=== PATIENT | female | born 1945 | race African-American/Black ===

== ENCOUNTER 2020-11-10 21:07 | Emergency (ER) | payer MEDICARE, MEDICAID ==
[~2020-11-10] VITALS: Ht 172.7 cm; Wt 82.0 kg
[2020-11-11 06:10] VITALS: BP 154/62
== END 2020-11-11 06:00 | disposition home or self-care (01) ==
LOC: ER 21:07
DX: S00.83XA Contusion of other part of head, initial encounter (principal); W01.198A Fall on same level from slipping, tripping and stumbling with subsequent striking against other object, initial encounter; Y93.89 Activity, other specified; Y92.013 Bedroom of single-family (private) house as the place of occurrence of the external cause; I10 Essential (primary) hypertension; G30.9 Alzheimer's disease, unspecified; F02.80 Dementia in other diseases classified elsewhere, unspecified severity, without behavioral disturbance, psychotic disturbance, mood disturbance, and anxiety
CPT/HCPCS: 93005; 99285

== ENCOUNTER 2021-05-20 17:05 | Inpatient (IN) | payer MEDICARE, MEDICAID ==
[~2021-05-20] VITALS: Ht 162.6 cm; Wt 51.7 kg
[2021-05-20] MEDS ORDERED: PIPERACILLIN/TAZ 3.375G PREMIX 50 ML IV ONE (21:45)
[2021-05-20] MEDS ORDERED: VANCOMYCIN 1 G PREMIX 200 ML IV ONE (21:45)
[2021-05-20 23:48] LABS: BASOPHILS % 0.6 % (0.0-2.0); EOSINOPHILS % 1.2 % (0.0-5.0); HEMATOCRIT. 29.1 % (36.0-48.0); HEMOGLOBIN. 9.5 g/dL (12.0-16.0); LYMPHOCYTES % 27.4 % (20.0-50.0); MEAN CORPUSCULAR HEMOGLOBIN 26.3 pg (28.0-32.0); MEAN CORPUSCULAR VOLUME 80.3 fL (81.0-99.0); MEAN PLATELET VOLUME 11.6 fl (7.4-10.4); NEUTROPHILS % 62.8 % (40.0-76.0); PLATELET 119 x1000/uL (130-400); RED BLOOD CELL COUNT 3.63 mill/uL (4.2-5.4); RED CELL DISTRIBUTION WIDTH 14.4 % (11.6-14.6)
[2021-05-20 23:54] LABS: CHLORIDE 111 mEq/L (98-107)
[2021-05-20 23:55] LABS: INR 1.1; PROTHROMBIN TIME 11.5 sec (9.6-11.0)
[2021-05-21] MEDS ORDERED: CLONIDINE 0.2MG TABLET PO NR
[2021-05-21] MEDS: HYDRALAZINE 20MG/ML VIAL IV PRN (01:08)
[2021-05-21 01:15] LABS: CLARITY URINE CLEAR (CLEAR); COLOR URINE DARK YELLOW (YELLOW); KETONES URINE NEGATIVE (NEGATIVE); LEUKOCYTE ESTERASE URINE TRACE (NEGATIVE); NITRITE URINE NEGATIVE (NEGATIVE); OCCULT BLOOD URINE NEGATIVE (NEGATIVE); PROTEIN URINE TRACE (NEGATIVE); SPECIFIC GRAVITY URINE 1.015 (1.005-1.030)
[2021-05-21] MEDS ORDERED: IOHEXOL-300 100 ML BOTTLE ONE (02:11)
[2021-05-21 03:00] VITALS: BP 178/62
[2021-05-21] MEDS ORDERED: PIPERACILLIN/TAZOBACTAM 3.375GM/50ML PREMIX IV ONE (06:00)
[2021-05-21] MEDS ORDERED: MEMA10TA2 MT (07:00)
[2021-05-21] MEDS ORDERED: METO-385 PO (07:29)
[2021-05-21] MEDS ORDERED: LORA-249 MT (07:29)
[2021-05-21] MEDS ORDERED: MEMA10TA55 MT (07:29)
[2021-05-21] MEDS ORDERED: HYDR-4135 PO (07:29)
[2021-05-21 08:00] VITALS: BP 174/63
[2021-05-21] MEDS: PIPERACILLIN/TAZOBACTAM 2.25G in DEXTROSE 5% WATER 50ML IV SCH ×3 (08:33→17:43)
[2021-05-21] MEDS: DONEPEZIL HCL 10MG TABLET PO SCH (08:34)
[2021-05-21] MEDS: LISINOPRIL 20MG TABLET PO SCH (08:35)
[2021-05-21] MEDS: AMLODIPINE 10MG TABLET PO SCH (08:35)
[2021-05-21] MEDS: ENOXAPARIN 30MG/0.3ML SYR SUBCUT SCH (08:37)
[2021-05-21] MEDS ORDERED: HYDRALAZINE HCL 50MG TABLET PO NR (11:15)
[2021-05-21] MEDS: SODIUM CHLORIDE 0.45% 1,000 ML IV SCH (11:32)
[2021-05-21] MEDS ORDERED: ACETAMINOPHEN 650MG/20.3ML UDC PO PRN (15:00)
[2021-05-21 16:00] VITALS: BP 121/52
[2021-05-21 20:00] VITALS: BP 119/51
[2021-05-21] MEDS ORDERED: VANCOMYCIN 750 MG PREMIX 150 ML IV SCH (20:00)
[2021-05-21 21:36] VITALS: BP 119/51
[2021-05-21] MEDS: HYDRALAZINE HCL 50MG TABLET PO SCH (22:03)
[2021-05-22] VITALS (8 sets, daily range): BP systolic 154–175; BP diastolic 58–65
[2021-05-22] MEDS: PIPERACILLIN/TAZOBACTAM 2.25G in DEXTROSE 5% WATER 50ML IV SCH ×4 (00:50→17:20)
[2021-05-22] MEDS: SODIUM CHLORIDE 0.45% 1,000 ML IV SCH ×2 (00:50→11:35)
[2021-05-22 07:46] LABS: BASOPHILS % 0.6 % (0.0-2.0); EOSINOPHILS % 3.5 % (0.0-5.0); HEMATOCRIT. 25.6 % (36.0-48.0); HEMOGLOBIN. 8.7 g/dL (12.0-16.0); LYMPHOCYTES % 20.2 % (20.0-50.0); MEAN CORPUSCULAR HEMOGLOBIN 26.9 pg (28.0-32.0); MEAN CORPUSCULAR VOLUME 78.7 fL (81.0-99.0); MEAN PLATELET VOLUME 12.3 fl (7.4-10.4); MONOCYTES % 9.6 % (2.0-8.0); NEUTROPHILS % 66.1 % (40.0-76.0); PLATELET 101 x1000/uL (130-400); RED BLOOD CELL COUNT 3.25 mill/uL (4.2-5.4); RED CELL DISTRIBUTION WIDTH 14.2 % (11.6-14.6)
[2021-05-22] MEDS: LISINOPRIL 20MG TABLET PO SCH (08:45)
[2021-05-22] MEDS: DONEPEZIL HCL 10MG TABLET PO SCH (08:45)
[2021-05-22] MEDS: AMLODIPINE 10MG TABLET PO SCH (08:45)
[2021-05-22] MEDS: ENOXAPARIN 30MG/0.3ML SYR SUBCUT SCH (08:46)
[2021-05-22] MEDS: HYDRALAZINE HCL 50MG TABLET PO SCH ×2 (08:47→21:33)
[2021-05-22] MEDS: HYDRALAZINE 20MG/ML VIAL IV PRN (13:03)
[2021-05-22] MEDS: VANCOMYCIN 750 MG PREMIX 150 ML IV SCH (21:20)
[2021-05-23] VITALS: BP_SYST 158; BP_SYST 166; BP_DIAS 59; BP_DIAS 65
[2021-05-23] MEDS: PIPERACILLIN/TAZOBACTAM 2.25G in DEXTROSE 5% WATER 50ML IV SCH ×5 (01:28→23:12)
[2021-05-23] MEDS: SODIUM CHLORIDE 0.45% 1,000 ML IV SCH ×2 (03:15→16:00)
[2021-05-23] MEDS: HYDRALAZINE 20MG/ML VIAL IV PRN (03:39)
[2021-05-23 04:00] VITALS: BP 152/52
[2021-05-23 06:21] LABS: BASOPHILS % 0.6 % (0.0-2.0); EOSINOPHILS % 0.7 % (0.0-5.0); HEMATOCRIT. 26.3 % (36.0-48.0); HEMOGLOBIN. 8.7 g/dL (12.0-16.0); LYMPHOCYTES % 18.2 % (20.0-50.0); MEAN CORPUSCULAR HEMOGLOBIN 25.9 pg (28.0-32.0); MEAN CORPUSCULAR VOLUME 78.6 fL (81.0-99.0); MONOCYTES % 11.5 % (2.0-8.0); PLATELET 124 x1000/uL (130-400); RED BLOOD CELL COUNT 3.35 mill/uL (4.2-5.4); RED CELL DISTRIBUTION WIDTH 14.3 % (11.6-14.6)
[2021-05-23 08:00] VITALS: BP 175/66
[2021-05-23] MEDS: ENOXAPARIN 30MG/0.3ML SYR SUBCUT SCH ×2 (09:00→10:45)
[2021-05-23] MEDS: AMLODIPINE 10MG TABLET PO SCH (09:51)
[2021-05-23] MEDS: LISINOPRIL 20MG TABLET PO SCH (09:51)
[2021-05-23] MEDS: HYDRALAZINE HCL 50MG TABLET PO SCH (09:51)
[2021-05-23] MEDS: DONEPEZIL HCL 10MG TABLET PO SCH (09:51)
[2021-05-23] MEDS ORDERED: POTASSIUM CHLORIDE 20MEQ TABLET SR PO NR (11:00)
[2021-05-23 12:00] VITALS: BP 152/58
[2021-05-23 16:00] VITALS: BP 160/62
[2021-05-23 20:00] VITALS: BP 164/65
[2021-05-23] MEDS: HYDRALAZINE HCL 100MG TABLET PO SCH (21:27)
[2021-05-23] MEDS: HYDROCODONE/ACETAMINOPHEN 5/325MG TABLET PO PRN (21:28)
[2021-05-23] MEDS: VANCOMYCIN 750 MG PREMIX 150 ML IV SCH (21:29)
[2021-05-24] VITALS: BP 160/60
[2021-05-24] MEDS: HYDRALAZINE 20MG/ML VIAL IV PRN (00:52)
[2021-05-24 04:00] VITALS: BP 157/60
[2021-05-24] MEDS: PIPERACILLIN/TAZOBACTAM 2.25G in DEXTROSE 5% WATER 50ML IV SCH ×4 (05:07→23:40)
[2021-05-24] MEDS: SODIUM CHLORIDE 0.45% 1,000 ML IV SCH ×2 (05:07→17:48)
[2021-05-24 08:00] VITALS: BP 163/72
[2021-05-24] MEDS: ENOXAPARIN 40MG/0.4ML SYR SUBCUT SCH (08:35)
[2021-05-24] MEDS: DONEPEZIL HCL 10MG TABLET PO SCH (08:35)
[2021-05-24] MEDS: AMLODIPINE 10MG TABLET PO SCH (08:36)
[2021-05-24] MEDS: LISINOPRIL 20MG TABLET PO SCH (08:36)
[2021-05-24] MEDS: HYDRALAZINE HCL 100MG TABLET PO SCH ×2 (08:36→17:33)
[2021-05-24 12:00] VITALS: BP 135/54
[2021-05-24] MEDS ORDERED: IOHEXOL-350 100 ML BOTTLE ONE (14:42)
[2021-05-24 16:10] VITALS: BP 161/72
[2021-05-24] MEDS ORDERED: CLONIDINE 0.1MG TABLET PO PRN (16:45)
[2021-05-24] MEDS ORDERED: DOCU-138 MT (17:11)
[2021-05-24] MEDS ORDERED: FERR325T23 MT (17:11)
[2021-05-24] MEDS ORDERED: AMOX1TAB16 MT (17:31)
[2021-05-24] MEDS ORDERED: DOXY100C2 MT (17:31)
[2021-05-24] MEDS: HYDROCODONE/ACETAMINOPHEN 5/325MG TABLET PO PRN (18:52)
[2021-05-24 20:00] VITALS: BP 157/61
[2021-05-24 20:21] LABS: TOTAL IRON BINDING CAPACITY 269 ug/dL (250-450)
[2021-05-24] MEDS: VANCOMYCIN 750 MG PREMIX 150 ML IV SCH (20:22)
[2021-05-25] VITALS: BP 165/57
[2021-05-25] MEDS: HYDRALAZINE HCL 100MG TABLET PO SCH ×2 (02:31→09:08)
[2021-05-25 04:00] VITALS: BP 186/64
[2021-05-25] MEDS: PIPERACILLIN/TAZOBACTAM 2.25G in DEXTROSE 5% WATER 50ML IV SCH ×2 (06:11→11:53)
[2021-05-25 08:00] VITALS: BP 106/64
[2021-05-25 08:47] VITALS: BP 106/68
[2021-05-25] MEDS: LISINOPRIL 20MG TABLET PO SCH (09:00)
[2021-05-25] MEDS: AMLODIPINE 10MG TABLET PO SCH (09:00)
[2021-05-25] MEDS: ENOXAPARIN 40MG/0.4ML SYR SUBCUT SCH (09:07)
[2021-05-25] MEDS: DONEPEZIL HCL 10MG TABLET PO SCH (09:07)
[2021-05-25] MEDS: SODIUM CHLORIDE 0.45% 1,000 ML IV SCH (09:08)
[2021-05-25 12:00] VITALS: BP 165/62
[2021-05-26] MEDS ORDERED: ENOXAPARIN 30MG/0.3ML SYR SUBCUT SCH (09:00)
== END 2021-05-25 13:55 | disposition home or self-care (01) | DRG 602 ==
LOC: ER 17:05 → 5WST 23:33 → EDBEDREQTM 23:35 → EDBEDREQ 23:35 → EDBEDREQSVC 23:35 → ENRESERV 23:46
PROVIDERS: ADMIT Internal Medicine; ATTEND Internal Medicine
DX: L03.115 Cellulitis of right lower limb (principal); N17.0 Acute kidney failure with tubular necrosis; E44.1 Mild protein-calorie malnutrition; Z68.1 Body mass index [BMI] 19.9 or less, adult; L97.519 Non-pressure chronic ulcer of other part of right foot with unspecified severity; E87.8 Other disorders of electrolyte and fluid balance, not elsewhere classified; F03.90 Unspecified dementia, unspecified severity, without behavioral disturbance, psychotic disturbance, mood disturbance, and anxiety; I10 Essential (primary) hypertension; I73.9 Peripheral vascular disease, unspecified; M85.80 Other specified disorders of bone density and structure, unspecified site; Z87.891 Personal history of nicotine dependence; M19.90 Unspecified osteoarthritis, unspecified site; R60.9 Edema, unspecified; D64.9 Anemia, unspecified; R26.89 Other abnormalities of gait and mobility
CPT/HCPCS: 36415; 71045; 73630; 73700; 75635; 80048; 80053; 80202; 81003; 82728; 83540; 83550; 83605; 84145; 85025; 93005; 93923; 99285; C1893; J0360; J1650; J2543; J3370; J7040; J7060; Q9967

== ENCOUNTER 2021-07-21 18:34 | Inpatient (IN) | payer MEDICARE, MEDICAID ==
[~2021-07-21] VITALS: Ht 167.6 cm; Wt 59.4 kg
[~2021-07-21 18:34] MED LIST: AMOX1TAB16 MT; DOCU-138 MT; DOXY100C2 MT; FERR325T23 MT; HYDR-4135 PO; LORA-249 MT; MEMA10TA2 MT; MEMA10TA55 MT; METO-385 PO
[2021-07-21 19:53] LABS: BASOPHILS % 0.4 % (0.0-2.0); EOSINOPHILS % 0.7 % (0.0-5.0); HEMATOCRIT. 31.2 % (36.0-48.0); HEMOGLOBIN. 9.5 g/dL (12.0-16.0); LYMPHOCYTES % 14.1 % (20.0-50.0); MEAN CORPUSCULAR HEMOGLOBIN 24.5 pg (28.0-32.0); MEAN CORPUSCULAR VOLUME 80.8 fL (81.0-99.0); MEAN PLATELET VOLUME 12.5 fl (7.4-10.4); NEUTROPHILS % 77.8 % (40.0-76.0); PLATELET 150 x1000/uL (130-400); RED BLOOD CELL COUNT 3.86 mill/uL (4.2-5.4); RED CELL DISTRIBUTION WIDTH 15.7 % (11.6-14.6)
[2021-07-21 19:58] LABS: CHLORIDE 142 mEq/L (98-107)
[2021-07-21 20:03] LABS: ETHANOL BLOOD < 10 mg/dL
[2021-07-21 20:06] LABS: CREATINE KINASE 890 IU/L (26-192)
[2021-07-21] MEDS ORDERED: FUROSEMIDE 100MG/10ML VIAL IV STA (20:48)
[2021-07-21 20:57] LABS: CLARITY URINE CLEAR (CLEAR); COLOR URINE YELLOW (YELLOW); KETONES URINE TRACE (NEGATIVE); LEUKOCYTE ESTERASE URINE 1+ (NEGATIVE); NITRITE URINE NEGATIVE (NEGATIVE); OCCULT BLOOD URINE NEGATIVE (NEGATIVE); PROTEIN URINE 1+ (NEGATIVE); SPECIFIC GRAVITY URINE 1.018 (1.005-1.030)
[2021-07-21] MEDS ORDERED: DEXTROSE 50% WATER 50ML SYRINGE IV ONE (21:00)
[2021-07-21] MEDS ORDERED: INSULIN REGULAR (HUMULIN R) 300UNITS/3ML VIAL IV ONE (21:00)
[2021-07-21] MEDS ORDERED: ALBUTEROL (0.083%) 2.5MG/3ML NEB HHN ONE (21:00)
[2021-07-21] MEDS ORDERED: SODIUM CHLORIDE 0.9% 1,000 ML IV ONE (21:00)
[2021-07-21] MEDS ORDERED: CALCIUM CHLORIDE 1GM/10ML SYR IV ONE (21:00)
[2021-07-21 21:09] LABS: *AMPHETAMINES SCREEN URINE NEGATIVE (NEGATIVE); *BARBITURATES SCREEN URINE NEGATIVE (NEGATIVE); *BENZODIAZEPINES SCREEN URINE NEGATIVE (NEGATIVE); *COCAINE SCREEN URINE NEGATIVE (NEGATIVE); METHADONE URINE SCREEN NEGATIVE (NEGATIVE); OPIATES URINE SCREEN NEGATIVE (NEGATIVE)
[2021-07-21 21:10] LABS: CANNABINOID URINE SCREEN NEGATIVE (NEGATIVE); PHENCYCLIDINE URINE SCREEN NEGATIVE (NEGATIVE)
[2021-07-21] MEDS ORDERED: PIPERACILLIN/TAZ 3.375G PREMIX 50 ML IV NR (23:45)
[2021-07-21] MEDS ORDERED: PIPERACILLIN/TAZOBACTAM 3.375GM/50ML PREMIX IV ONE (23:45)
[2021-07-21] MEDS ORDERED: VANCOMYCIN 500 MG PREMIX 100 ML IV SCH (23:45)
[2021-07-21] MEDS ORDERED: TETANUS, DIPHTHERIA, PERTUSSIS VAC/PF 0.5ML (>7YR OLD) IM ONE (23:45)
[2021-07-22] MEDS ORDERED: DEXTROSE 5% WATER 1,000 ML IV ONE (00:15)
[2021-07-22] MEDS ORDERED: FUROSEMIDE 100MG/10ML VIAL IV STA (00:38)
[2021-07-22 00:44] LABS: PHOSPHORUS 4.3 mg/dL (2.5-4.9)
[2021-07-22] MEDS ORDERED: ALBUTEROL (0.083%) 2.5MG/3ML NEB HHN ONE (00:45)
[2021-07-22] MEDS ORDERED: INSULIN REGULAR (HUMULIN R) 300UNITS/3ML VIAL IV ONE (00:45)
[2021-07-22] MEDS ORDERED: CALCIUM CHLORIDE 1GM/10ML SYR IV ONE (00:45)
[2021-07-22] MEDS ORDERED: DEXTROSE 50% WATER 50ML SYRINGE IV ONE (00:45)
[2021-07-22] MEDS ORDERED: DEXTROSE 50% WATER 50ML SYRINGE IV SCH ×2 (04:30→09:00)
[2021-07-22] MEDS ORDERED: INSULIN REGULAR (HUMULIN R) 300UNITS/3ML VIAL IV SCH ×2 (04:30→09:00)
[2021-07-22] MEDS ORDERED: ACETAMINOPHEN 325MG TABLET PO PRN (08:45)
[2021-07-22] MEDS ORDERED: SODIUM BICARBONATE 8.4% 1 MEQ/ML 50ML SYR IV SCH (09:00)
[2021-07-22] MEDS ORDERED: SODIUM POLYSTYRENE SULFONATE 15 G/60 ML BOT PO SCH (09:00)
[2021-07-22] MEDS: ASPIRIN 81MG TABLET PO SCH (09:48)
[2021-07-22] MEDS: DEXTROSE 5% WATER 1,000 ML IV SCH ×2 (10:01→22:14)
[2021-07-22 16:00] VITALS: BP 142/62
[2021-07-22 16:30] VITALS: BP 142/62
[2021-07-22] MEDS ORDERED: SODIUM POLYSTYRENE SULFONATE 15 G/60 ML BOT PO NR (19:00)
[2021-07-22] MEDS ORDERED: LISI20TA31 PO (19:31)
[2021-07-22] MEDS ORDERED: OMEP20CA14 PO (19:35)
[2021-07-22 20:00] VITALS: BP 146/56
[2021-07-23] VITALS: BP 157/56
[2021-07-23 04:20] VITALS: BP 109/46
[2021-07-23 08:00] VITALS: BP 154/58
[2021-07-23 08:36] LABS: BASOPHILS % 0.3 % (0.0-2.0); HEMATOCRIT. 26.4 % (36.0-48.0); LYMPHOCYTES % 8.2 % (20.0-50.0); MEAN CORPUSCULAR HEMOGLOBIN 24.2 pg (28.0-32.0); MEAN CORPUSCULAR VOLUME 80.1 fL (81.0-99.0); MEAN PLATELET VOLUME 12.9 fl (7.4-10.4); NEUTROPHILS % 83.5 % (40.0-76.0); PLATELET 105 x1000/uL (130-400); RED BLOOD CELL COUNT 3.29 mill/uL (4.2-5.4); RED CELL DISTRIBUTION WIDTH 16.1 % (11.6-14.6)
[2021-07-23] MEDS: DEXTROSE 5% WATER 1,000 ML IV SCH (10:46)
[2021-07-23] MEDS: ASPIRIN 81MG TABLET PO SCH (10:49)
[2021-07-23 12:00] VITALS: BP 137/51
[2021-07-23 16:00] VITALS: BP 142/57
[2021-07-23 20:00] VITALS: BP 124/64
[2021-07-24] VITALS: BP 137/56
[2021-07-24] MEDS: DEXTROSE 5% WATER 1,000 ML IV SCH ×3 (01:50→21:20)
[2021-07-24 04:00] VITALS: BP 144/60
[2021-07-24 08:00] VITALS: BP 151/59
[2021-07-24 08:25] LABS: BASOPHILS % 0.4 % (0.0-2.0); EOSINOPHILS % 1.8 % (0.0-5.0); HEMATOCRIT. 26.5 % (36.0-48.0); HEMOGLOBIN. 8.1 g/dL (12.0-16.0); LYMPHOCYTES % 11.4 % (20.0-50.0); MEAN CORPUSCULAR HEMOGLOBIN 24.8 pg (28.0-32.0); MEAN CORPUSCULAR VOLUME 81.2 fL (81.0-99.0); MEAN PLATELET VOLUME 12.8 fl (7.4-10.4); MONOCYTES % 6.9 % (2.0-8.0); NEUTROPHILS % 79.5 % (40.0-76.0); PLATELET 108 x1000/uL (130-400); RED BLOOD CELL COUNT 3.27 mill/uL (4.2-5.4)
[2021-07-24] MEDS: ASPIRIN 81MG TABLET PO SCH (10:37)
[2021-07-24 12:00] VITALS: BP 159/50
[2021-07-24 16:00] VITALS: BP 135/59
[2021-07-24 16:10] LABS: TOTAL IRON BINDING CAPACITY 254 ug/dL (250-450)
[2021-07-24 16:32] LABS: FOLIC ACID (FOLATE) SERUM 4.5 ng/mL (>5.38)
[2021-07-24 20:00] VITALS: BP 130/76
[2021-07-25] VITALS: BP 134/64
[2021-07-25 04:00] VITALS: BP 106/48
[2021-07-25 08:00] VITALS: BP 165/68
[2021-07-25 08:09] LABS: ANTI-NUCLEAR ANTIBODIES DIRECT Negative (Negative)
[2021-07-25] MEDS: ASPIRIN 81MG TABLET PO SCH (09:15)
[2021-07-25 12:00] VITALS: BP 141/52
[2021-07-25] MEDS: AMLODIPINE 5MG TABLET PO SCH (13:00)
[2021-07-25] MEDS: FOLIC ACID 1MG TABLET PO SCH (13:00)
[2021-07-25 16:00] VITALS: BP 127/57
[2021-07-25] MEDS: DEXTROSE 5% WATER 1,000 ML IV SCH (17:40)
[2021-07-25 20:00] VITALS: BP 144/56
[2021-07-26] MEDS: DEXTROSE 5% WATER 1,000 ML IV SCH ×2 (03:57→22:04)
[2021-07-26 04:00] VITALS: BP 161/56
[2021-07-26 06:29] LABS: PROTHROMBIN TIME 11.2 sec (9.6-11.0)
[2021-07-26 06:38] LABS: BASOPHILS % 0.6 % (0.0-2.0); EOSINOPHILS % 1.7 % (0.0-5.0); HEMOGLOBIN. 7.5 g/dL (12.0-16.0); MEAN CORPUSCULAR HEMOGLOBIN 24.9 pg (28.0-32.0); MEAN CORPUSCULAR VOLUME 76.2 fL (81.0-99.0); MONOCYTES % 7.4 % (2.0-8.0); NEUTROPHILS % 79.3 % (40.0-76.0); RED BLOOD CELL COUNT 3.03 mill/uL (4.2-5.4); RED CELL DISTRIBUTION WIDTH 15.5 % (11.6-14.6)
[2021-07-26 06:44] LABS: CHLORIDE 116 mEq/L (98-107)
[2021-07-26 08:00] VITALS: BP 104/61
[2021-07-26] MEDS: AMLODIPINE 5MG TABLET PO SCH (09:00)
[2021-07-26] MEDS: ASPIRIN 81MG TABLET PO SCH (09:00)
[2021-07-26] MEDS: FOLIC ACID 1MG TABLET PO SCH (09:00)
[2021-07-26] MEDS: POTASSIUM CHLORIDE 20MEQ/PACKET PO NR ×2 (10:45→12:09)
[2021-07-26 12:00] VITALS: BP 154/60
[2021-07-26 13:08] LABS: MEAN PLATELET VOLUME 11.9 fl (7.4-10.4); PLATELET 80 x1000/uL (130-400)
[2021-07-26] MEDS ORDERED: CEFAZOLIN 1000MG PREMIX 50 ML IV SCH (14:00)
[2021-07-26 16:00] VITALS: BP 145/108
[2021-07-26] MEDS: DOCUSATE SODIUM 100MG CAPSULE PO SCH ×2 (17:00→17:52)
[2021-07-26] MEDS: FERROUS SULFATE 325MG TABLET PO SCH ×2 (17:40→17:54)
[2021-07-26 20:00] VITALS: BP 161/62
[2021-07-26] MEDS ORDERED: VANCOMYCIN 500 MG PREMIX 100 ML IV NR (23:30)
[2021-07-27] VITALS (9 sets, daily range): BP systolic 104–168; BP diastolic 42–69
[2021-07-27 00:04] LABS: HEMATOCRIT. 23.2 % (36.0-48.0); HEMOGLOBIN. 7.3 g/dL (12.0-16.0); MEAN CORPUSCULAR HEMOGLOBIN 24.8 pg (28.0-32.0); MEAN CORPUSCULAR VOLUME 78.5 fL (81.0-99.0); MEAN PLATELET VOLUME 11.9 fl (7.4-10.4); PLATELET 112 x1000/uL (130-400); RED BLOOD CELL COUNT 2.96 mill/uL (4.2-5.4)
[2021-07-27 01:05] LABS: PLATELET ESTIMATE DECREASED
[2021-07-27] MEDS: FERROUS SULFATE 325MG TABLET PO SCH ×3 (07:40→17:40)
[2021-07-27] MEDS: DOCUSATE SODIUM 100MG CAPSULE PO SCH ×2 (07:49→17:00)
[2021-07-27] MEDS: AMLODIPINE 5MG TABLET PO SCH (07:49)
[2021-07-27] MEDS: FOLIC ACID 1MG TABLET PO SCH (07:49)
[2021-07-27] MEDS: DEXTROSE 5% WATER 1,000 ML IV SCH ×2 (09:01→22:44)
[2021-07-27] MEDS: SODIUM HYPOCHLORITE 0.125% 473ML SOLUTION TOP SCH (09:03)
[2021-07-27] MEDS ORDERED: LIDOCAINE HCL 1% 20ML VIAL (Pyxis) INJ ONE (10:57)
[2021-07-27 13:47] LABS: HEMATOCRIT. 23.2 % (36.0-48.0); HEMOGLOBIN. 7.3 g/dL (12.0-16.0); MEAN CORPUSCULAR HEMOGLOBIN 24.3 pg (28.0-32.0); MEAN CORPUSCULAR VOLUME 77.2 fL (81.0-99.0); RED BLOOD CELL COUNT 3.01 mill/uL (4.2-5.4); RED CELL DISTRIBUTION WIDTH 15.7 % (11.6-14.6)
[2021-07-27 14:17] LABS: PLATELET 120 x1000/uL (130-400)
[2021-07-27 14:20] LABS: PLATELET ESTIMATE SLIGHTLY DECREASED
[2021-07-27] MEDS ORDERED: ETOMIDATE 2MG/ML 10ML VIAL IV ONE (16:04)
[2021-07-27] MEDS ORDERED: MIDAZOLAM HCL 2 MG/2 ML VIAL ONE (16:04)
[2021-07-27] MEDS ORDERED: CEFAZOLIN SODIUM 1000MG/VIAL ONE (16:32)
[2021-07-27] MEDS: PIPERACILLIN/TAZOBACTAM 3.375 G in DEXTROSE 5% WATER 50 ML IV SCH (21:03)
[2021-07-27] MEDS: VANCOMYCIN 500 MG PREMIX 100 ML IV SCH (22:42)
[2021-07-28] VITALS: BP 115/40
[2021-07-28 04:00] VITALS: BP 92/48
[2021-07-28] MEDS: FERROUS SULFATE 325MG TABLET PO SCH ×3 (07:40→17:40)
[2021-07-28 07:44] LABS: HEMATOCRIT. 30.9 % (36.0-48.0); HEMOGLOBIN. 9.8 g/dL (12.0-16.0); MEAN CORPUSCULAR HEMOGLOBIN 24.9 pg (28.0-32.0); MEAN CORPUSCULAR VOLUME 78.6 fL (81.0-99.0); MEAN PLATELET VOLUME 11.3 fl (7.4-10.4); PLATELET 194 x1000/uL (130-400); RED BLOOD CELL COUNT 3.93 mill/uL (4.2-5.4); RED CELL DISTRIBUTION WIDTH 17.1 % (11.6-14.6)
[2021-07-28] MEDS: DOCUSATE SODIUM 100MG CAPSULE PO SCH ×2 (08:08→17:00)
[2021-07-28] MEDS: AMLODIPINE 5MG TABLET PO SCH (08:08)
[2021-07-28] MEDS: FOLIC ACID 1MG TABLET PO SCH (08:08)
[2021-07-28] MEDS: PIPERACILLIN/TAZOBACTAM 3.375 G in DEXTROSE 5% WATER 50 ML IV SCH ×2 (08:53→21:00)
[2021-07-28] MEDS ORDERED: POTASSIUM CHLORIDE INJ 40 MEQ in DEXT 5% WATER 500 ML IV NR (10:00)
[2021-07-28] MEDS: DEXT 5%/0.45% NACL 1000ML 1,000 ML IV SCH ×2 (10:58→23:52)
[2021-07-28] MEDS: SODIUM HYPOCHLORITE 0.125% 473ML SOLUTION TOP SCH (10:58)
[2021-07-28] MEDS ORDERED: LIDOCAINE HCL 1% 20ML VIAL (Pyxis) INJ ONE (11:03)
[2021-07-28] MEDS ORDERED: SKIN ADHESIVE 0.7 GM EA TOP ONE (11:03)
[2021-07-28] MEDS ORDERED: POLYMYXIN B SULFATE 500000 UNITS/VIAL ONE (11:04)
[2021-07-28] MEDS ORDERED: BUPIVACAINE HCL 0.5% (5MG/ML) 50ML ONE (11:04)
[2021-07-28 12:00] VITALS: BP 72/32
[2021-07-28 16:00] VITALS: BP 100/41
[2021-07-28] MEDS ORDERED: LABETALOL 5MG/ML SYR 20 MG/4 ML SYRINGE IV PRN (16:45)
[2021-07-28] MEDS ORDERED: ONDANSETRON HCL 4MG/2ML INJ IV PRN (16:45)
[2021-07-28] MEDS ORDERED: MEPERIDINE HCL/PF 25MG/ML CPJ IV PRN (16:45)
[2021-07-28 16:47] LABS: PLATELET ESTIMATE NORMAL
[2021-07-28] MEDS ORDERED: ALBUMIN HUMAN 25GM/100ML (25%) IV ONE (17:14)
[2021-07-28] MEDS ORDERED: GLYCOPYRROLATE 0.2 MG/ML 2ML VIAL ONE (17:18)
[2021-07-28] MEDS ORDERED: NOREPINEPHRINE 8 MG in DEXTROSE 5% WATER 250 ML IV ONE (17:45)
[2021-07-28] MEDS ORDERED: SODIUM BICARBONATE 8.4% 1 MEQ/ML 50ML SYR IV ONE ×2 (18:05→20:45)
[2021-07-28] MEDS: POTASSIUM CHLORIDE INJ 40 MEQ in DEXT 5% WATER 250 ML IV NR ×2 (19:30→23:51)
[2021-07-28 20:10] LABS: BG BASE EXCESS -12.2 mmol/L (-2.0-2.0); BG CARBOXYHEMOGLOBIN 0.1 % (0.5-1.5); BG FRACTION INSPIRED OXYGEN 50; BG HCO3 ACT 13.6 mmol/L (22.0-26.0); BG METHEMOGLOBIN 0.4 % (0.0-1.5); BG OXYGEN SATURATION 78.9 % (92.0-98.5); BG OXYHEMOGLOBIN 78.5 % (94.0-97.0); BG PCO2 30.8 mmHg (35.0-45.0); BG PH 7.264 (7.350-7.450); BG PO2 47.4 mmHg (75.0-100.0); BG SAMPLE SITE CL; BG TOTAL HEMOGLOBIN 9.2 g/dL (12.0-18.0); BG VENT MODE VENT - SIMV
[2021-07-28 20:15] LABS: HEMATOCRIT. 25.3 % (36.0-48.0); HEMOGLOBIN. 8.3 g/dL (12.0-16.0); MEAN CORPUSCULAR VOLUME 81.9 fL (81.0-99.0); MEAN PLATELET VOLUME 11.4 fl (7.4-10.4); PLATELET 89 x1000/uL (130-400); RED BLOOD CELL COUNT 3.09 mill/uL (4.2-5.4); RED CELL DISTRIBUTION WIDTH 20.3 % (11.6-14.6)
[2021-07-28 20:20] LABS: CHLORIDE 110 mEq/L (98-107)
[2021-07-28] MEDS ORDERED: DEXTROSE 50% WATER 50ML SYRINGE IV ONE (20:37)
[2021-07-28] MEDS ORDERED: DEXTROSE 50% WATER 50ML SYRINGE IV PRN (20:45)
[2021-07-28] MEDS ORDERED: MAGNESIUM 2 G PREMIX 50 ML IV ONE (20:45)
[2021-07-28] MEDS ORDERED: MAGNESIUM 1 G PREMIX 100 ML IV ONE (20:45)
[2021-07-28 20:56] LABS: PLATELET ESTIMATE DECREASED
[2021-07-28] MEDS ORDERED: MAGNESIUM SULFATE 3 GM in DEXTROSE 5% WATER 100 ML IV NR (21:00)
[2021-07-28 22:00] VITALS: BP 167/81
[2021-07-28 23:00] VITALS: BP 180/73
[2021-07-28] MEDS ORDERED: PROPOFOL 10MG/ML 100ML 100 ML IV PRN (23:15)
[2021-07-28] MEDS ORDERED: FENTANYL CITRATE/PF 2,500 MCG in SODIUM CHLORIDE 0.9% 200 ML IV PRN (23:15)
[2021-07-28] MEDS: VANCOMYCIN 500 MG PREMIX 100 ML IV SCH (23:51)
[2021-07-29] VITALS (45 sets, daily range): BP systolic 115–178; BP diastolic 49–90
[2021-07-29 06:32] LABS: HEMATOCRIT. 31.9 % (36.0-48.0); HEMOGLOBIN. 10.7 g/dL (12.0-16.0); MEAN CORPUSCULAR HEMOGLOBIN 26.7 pg (28.0-32.0); MEAN CORPUSCULAR VOLUME 79.5 fL (81.0-99.0); MEAN PLATELET VOLUME 11.5 fl (7.4-10.4); PLATELET 87 x1000/uL (130-400); RED BLOOD CELL COUNT 4.02 mill/uL (4.2-5.4); RED CELL DISTRIBUTION WIDTH 18.8 % (11.6-14.6)
[2021-07-29 06:45] LABS: PHOSPHORUS 2.6 mg/dL (2.5-4.9)
[2021-07-29 07:44] LABS: PLATELET ESTIMATE DECREASED
[2021-07-29] MEDS: FERROUS SULFATE 325MG TABLET PO SCH ×3 (08:20→18:20)
[2021-07-29] MEDS: AMLODIPINE 5MG TABLET PO SCH (09:00)
[2021-07-29] MEDS: FOLIC ACID 1MG TABLET PO SCH (09:00)
[2021-07-29] MEDS: DOCUSATE SODIUM 100MG CAPSULE PO SCH ×2 (09:00→17:00)
[2021-07-29 09:35] LABS: BG CARBOXYHEMOGLOBIN 0.3 % (0.5-1.5); BG DEOXYHEMOGLOBIN 1.9 % (0.0-5.0); BG FRACTION INSPIRED OXYGEN 40; BG HCO3 ACT 19.6 mmol/L (22.0-26.0); BG OXYGEN SATURATION 98.1 % (92.0-98.5); BG OXYHEMOGLOBIN 97.8 % (94.0-97.0); BG PCO2 27.6 mmHg (35.0-45.0); BG PH 7.469 (7.350-7.450); BG PO2 110.6 mmHg (75.0-100.0); BG SAMPLE SITE RIGHT RADIAL; BG TOTAL HEMOGLOBIN 11.5 g/dL (12.0-18.0); BG VENT MODE VENT - CPAP
[2021-07-29] MEDS: PIPERACILLIN/TAZOBACTAM 3.375 G in DEXTROSE 5% WATER 50 ML IV SCH ×2 (09:58→20:17)
[2021-07-29] MEDS: SODIUM HYPOCHLORITE 0.125% 473ML SOLUTION TOP SCH (09:58)
[2021-07-29] MEDS: MORPHINE SULFATE 4 MG/ML CPJ (NOT FOR IM USE) IV PRN (10:30)
[2021-07-29] MEDS ORDERED: NALOXONE HCL 0.4MG/ML VIAL IV PRN (11:15)
[2021-07-29] MEDS ORDERED: FUROSEMIDE 40MG/4ML VIAL IVP NR (16:21)
[2021-07-29] MEDS: DEXT 5%/0.45% NACL 1000ML 1,000 ML IV SCH (18:16)
[2021-07-29] MEDS: VANCOMYCIN 500 MG PREMIX 100 ML IV SCH (22:09)
[2021-07-30] VITALS (28 sets, daily range): BP systolic 128–183; BP diastolic 54–79
[2021-07-30 07:23] LABS: HEMATOCRIT. 30.1 % (36.0-48.0); MEAN CORPUSCULAR HEMOGLOBIN 26.3 pg (28.0-32.0); MEAN CORPUSCULAR VOLUME 79.1 fL (81.0-99.0); MEAN PLATELET VOLUME 11.2 fl (7.4-10.4); PLATELET 85 x1000/uL (130-400); RED BLOOD CELL COUNT 3.81 mill/uL (4.2-5.4); RED CELL DISTRIBUTION WIDTH 19.1 % (11.6-14.6)
[2021-07-30] MEDS: FERROUS SULFATE 325MG TABLET PO SCH ×3 (08:20→16:57)
[2021-07-30] MEDS: PIPERACILLIN/TAZOBACTAM 3.375 G in DEXTROSE 5% WATER 50 ML IV SCH ×2 (08:26→21:14)
[2021-07-30] MEDS: DOCUSATE SODIUM 100MG CAPSULE PO SCH ×2 (08:33→16:57)
[2021-07-30] MEDS: AMLODIPINE 5MG TABLET PO SCH (08:33)
[2021-07-30] MEDS: FOLIC ACID 1MG TABLET PO SCH (08:33)
[2021-07-30 08:53] LABS: PLATELET ESTIMATE DECREASED
[2021-07-30] MEDS: DEXT 5%/0.45% NACL 1000ML 1,000 ML IV SCH (11:23)
[2021-07-30] MEDS: SODIUM HYPOCHLORITE 0.125% 473ML SOLUTION TOP SCH (11:23)
[2021-07-30] MEDS ORDERED: POTASSIUM CHLORIDE INJ 40 MEQ in DEXT 5% WATER 250 ML IV NR ×2 (14:00→20:00)
[2021-07-30] MEDS: VANCOMYCIN 500 MG PREMIX 100 ML IV SCH (23:24)
[2021-07-31] VITALS (12 sets, daily range): BP systolic 118–172; BP diastolic 25–79
[2021-07-31] MEDS: DEXT 5%/0.45% NACL 1000ML 1,000 ML IV SCH ×2 (03:25→19:14)
[2021-07-31 07:12] LABS: HEMATOCRIT. 30.6 % (36.0-48.0); HEMOGLOBIN. 10.3 g/dL (12.0-16.0); MEAN CORPUSCULAR HEMOGLOBIN 26.7 pg (28.0-32.0); MEAN CORPUSCULAR VOLUME 79.1 fL (81.0-99.0); MEAN PLATELET VOLUME 10.6 fl (7.4-10.4); PLATELET 82 x1000/uL (130-400); RED BLOOD CELL COUNT 3.87 mill/uL (4.2-5.4); RED CELL DISTRIBUTION WIDTH 18.8 % (11.6-14.6)
[2021-07-31] MEDS: FERROUS SULFATE 325MG TABLET PO SCH ×3 (08:00→18:00)
[2021-07-31] MEDS: DOCUSATE SODIUM 100MG CAPSULE PO SCH ×2 (08:28→17:00)
[2021-07-31] MEDS: FOLIC ACID 1MG TABLET PO SCH (08:28)
[2021-07-31] MEDS: AMLODIPINE 5MG TABLET PO SCH (08:42)
[2021-07-31] MEDS: PIPERACILLIN/TAZOBACTAM 3.375 G in DEXTROSE 5% WATER 50 ML IV SCH ×2 (08:59→20:39)
[2021-07-31] MEDS: SODIUM HYPOCHLORITE 0.125% 473ML SOLUTION TOP SCH (10:12)
[2021-07-31 10:24] LABS: PLATELET ESTIMATE DECREASED
[2021-07-31] MEDS: HYDRALAZINE 20MG/ML VIAL IV SCH ×2 (14:46→22:00)
[2021-07-31 15:02] LABS: BG BASE EXCESS -3.3 mmol/L (-2.0-2.0); BG CARBOXYHEMOGLOBIN 0.5 % (0.5-1.5); BG DEOXYHEMOGLOBIN 4.8 % (0.0-5.0); BG FRACTION INSPIRED OXYGEN 40; BG HCO3 ACT 20.3 mmol/L (22.0-26.0); BG METHEMOGLOBIN 0.3 % (0.0-1.5); BG OXYGEN SATURATION 95.2 % (92.0-98.5); BG OXYHEMOGLOBIN 94.4 % (94.0-97.0); BG PCO2 32.3 mmHg (35.0-45.0); BG PH 7.417 (7.350-7.450); BG PO2 74.8 mmHg (75.0-100.0); BG SAMPLE SITE RIGHT RADIAL; BG TOTAL HEMOGLOBIN 12.3 g/dL (12.0-18.0); BG VENT MODE NASAL CANNULA
[2021-07-31] MEDS: ONDANSETRON HCL 4MG/2ML INJ IV PRN (16:38)
[2021-07-31] MEDS: MORPHINE SULFATE 4 MG/ML CPJ (NOT FOR IM USE) IV PRN (16:57)
[2021-07-31] MEDS ORDERED: IPRATROPIUM/ALBUTEROL 0.5-3(2.5)MG/3ML NEB HHN PRN (17:15)
[2021-07-31] MEDS: VANCOMYCIN 500 MG PREMIX 100 ML IV SCH (21:55)
[2021-08-01] VITALS (12 sets, daily range): BP systolic 104–149; BP diastolic 50–72
[2021-08-01] MEDS: METOCLOPRAMIDE HCL 10MG/2ML VIAL IV SCH ×5 (00:23→23:07)
[2021-08-01] MEDS: DEXT 5%/0.45% NACL 1000ML 1,000 ML IV SCH ×3 (03:47→20:36)
[2021-08-01] MEDS: HYDRALAZINE 20MG/ML VIAL IV SCH ×3 (05:30→22:50)
[2021-08-01 06:43] LABS: MEAN CORPUSCULAR HEMOGLOBIN 26.1 pg (28.0-32.0); MEAN CORPUSCULAR VOLUME 78.5 fL (81.0-99.0); MEAN PLATELET VOLUME 10.8 fl (7.4-10.4); PLATELET 92 x1000/uL (130-400); RED BLOOD CELL COUNT 4.21 mill/uL (4.2-5.4); RED CELL DISTRIBUTION WIDTH 19.3 % (11.6-14.6)
[2021-08-01 07:32] LABS: HEPATITIS B SURFACE ANTIGEN NEGATIVE
[2021-08-01] MEDS: FERROUS SULFATE 325MG TABLET PO SCH ×4 (08:00→17:15)
[2021-08-01] MEDS: PIPERACILLIN/TAZOBACTAM 3.375 G in DEXTROSE 5% WATER 50 ML IV SCH ×2 (08:54→21:00)
[2021-08-01] MEDS: SODIUM HYPOCHLORITE 0.125% 473ML SOLUTION TOP SCH (08:54)
[2021-08-01] MEDS: AMLODIPINE 5MG TABLET PO SCH ×2 (08:55→09:00)
[2021-08-01] MEDS: DOCUSATE SODIUM 100MG CAPSULE PO SCH ×3 (08:55→17:00)
[2021-08-01] MEDS: FOLIC ACID 1MG TABLET PO SCH ×2 (08:55→09:00)
[2021-08-01] MEDS ORDERED: KCL 20MEQ/100ML PREMIX 100 ML IV NR (11:30)
[2021-08-01] MEDS: FAT EMULSIONS 500 ML IV SCH (21:00)
[2021-08-01] MEDS ORDERED: TOTAL PARENTERAL NUTRITION 1,200 ML IV SCH (21:00)
[2021-08-01] MEDS: VANCOMYCIN 500 MG PREMIX 100 ML IV SCH (22:50)
[2021-08-01] MEDS: BLOOD SUGAR DIAGNOSTIC STRIP TEST SCH (23:07)
[2021-08-02] VITALS (12 sets, daily range): BP systolic 107–132; BP diastolic 42–64
[2021-08-02 04:39] LABS: PLATELET ESTIMATE DECREASED
[2021-08-02] MEDS: METOCLOPRAMIDE HCL 10MG/2ML VIAL IV SCH ×3 (05:20→16:51)
[2021-08-02] MEDS: HYDRALAZINE 20MG/ML VIAL IV SCH ×3 (05:20→21:10)
[2021-08-02] MEDS: BLOOD SUGAR DIAGNOSTIC STRIP TEST SCH ×3 (06:00→16:59)
[2021-08-02 07:39] LABS: HEMATOCRIT. 31.6 % (36.0-48.0); HEMOGLOBIN. 10.6 g/dL (12.0-16.0); MEAN CORPUSCULAR VOLUME 80.5 fL (81.0-99.0); MEAN PLATELET VOLUME 10.7 fl (7.4-10.4); PLATELET 91 x1000/uL (130-400); RED BLOOD CELL COUNT 3.93 mill/uL (4.2-5.4); RED CELL DISTRIBUTION WIDTH 19.2 % (11.6-14.6)
[2021-08-02] MEDS: DOCUSATE SODIUM 100MG CAPSULE PO SCH ×2 (08:37→16:51)
[2021-08-02] MEDS: FOLIC ACID 1MG TABLET PO SCH (08:37)
[2021-08-02] MEDS: FERROUS SULFATE 325MG TABLET PO SCH ×3 (08:37→16:51)
[2021-08-02] MEDS: SODIUM HYPOCHLORITE 0.125% 473ML SOLUTION TOP SCH (08:38)
[2021-08-02 08:40] LABS: CHLORIDE 107 mEq/L (98-107)
[2021-08-02] MEDS: AMLODIPINE 5MG TABLET PO SCH (08:49)
[2021-08-02] MEDS: PIPERACILLIN/TAZOBACTAM 3.375 G in DEXTROSE 5% WATER 50 ML IV SCH (08:49)
[2021-08-02 08:52] LABS: PHOSPHORUS 1.6 mg/dL (2.5-4.9)
[2021-08-02] MEDS ORDERED: POTASSIUM CHLORIDE INJ 40 MEQ in DEXT 5% WATER 250 ML IV ONE (10:15)
[2021-08-02] MEDS: BISACODYL 10MG SUPP PR SCH (10:30)
[2021-08-02] MEDS: LINEZOLID 600 MG PREMIX 300 ML IV SCH ×2 (12:00→20:51)
[2021-08-02] MEDS ORDERED: POTASSIUM PHOS,M-BASIC-D-BASIC 20 MMOL in DEXT 5% WATER 243.3333 ML IV NR (12:00)
[2021-08-02 17:21] LABS: PLATELET ESTIMATE DECREASED
[2021-08-02] MEDS ORDERED: PIPERACILLIN/TAZOBACTAM 3.375 G in DEXTROSE 5% WATER 50 ML IV SCH (20:00)
[2021-08-02] MEDS ORDERED: LINEZOLID 600 MG PREMIX 300 ML IV SCH (20:45)
[2021-08-02] MEDS: TOTAL PARENTERAL NUTRITION 1,600 ML IV SCH (20:52)
[2021-08-02] MEDS: MICAFUNGIN 100 MG in SODIUM CHLORIDE 0.9% 100 ML IV SCH (22:49)
[2021-08-03] VITALS (12 sets, daily range): BP systolic 94–133; BP diastolic 45–52
[2021-08-03] MEDS: METOCLOPRAMIDE HCL 10MG/2ML VIAL IV SCH ×5 (00:18→23:01)
[2021-08-03] MEDS: BLOOD SUGAR DIAGNOSTIC STRIP TEST SCH ×4 (06:00→18:44)
[2021-08-03] MEDS: HYDRALAZINE 20MG/ML VIAL IV SCH ×3 (06:10→22:07)
[2021-08-03 07:28] LABS: PHOSPHORUS 2.4 mg/dL (2.5-4.9)
[2021-08-03 07:32] LABS: HEMATOCRIT. 31.6 % (36.0-48.0); HEMOGLOBIN. 10.2 g/dL (12.0-16.0); MEAN CORPUSCULAR HEMOGLOBIN 26.1 pg (28.0-32.0); MEAN CORPUSCULAR VOLUME 80.6 fL (81.0-99.0); MEAN PLATELET VOLUME 10.2 fl (7.4-10.4); PLATELET 76 x1000/uL (130-400); RED BLOOD CELL COUNT 3.92 mill/uL (4.2-5.4); RED CELL DISTRIBUTION WIDTH 19.6 % (11.6-14.6)
[2021-08-03] MEDS: FERROUS SULFATE 325MG TABLET PO SCH ×3 (08:03→18:44)
[2021-08-03] MEDS: LINEZOLID 600 MG PREMIX 300 ML IV SCH ×2 (08:04→21:04)
[2021-08-03] MEDS: ONDANSETRON HCL 4MG/2ML INJ IV PRN (08:04)
[2021-08-03] MEDS: FOLIC ACID 1MG TABLET PO SCH (08:04)
[2021-08-03] MEDS: MORPHINE SULFATE 2 MG/ML CPJ (NOT FOR IM USE) IV PRN (08:07)
[2021-08-03] MEDS: AMLODIPINE 5MG TABLET PO SCH (08:07)
[2021-08-03] MEDS: DOCUSATE SODIUM 100MG CAPSULE PO SCH ×2 (08:07→16:53)
[2021-08-03] MEDS: SODIUM HYPOCHLORITE 0.125% 473ML SOLUTION TOP SCH (08:08)
[2021-08-03] MEDS: BISACODYL 10MG SUPP PR SCH (09:59)
[2021-08-03 13:03] LABS: PLATELET ESTIMATE DECREASED
[2021-08-03] MEDS ORDERED: POTASSIUM PHOS,M-BASIC-D-BASIC 15 MMOL in DEXT 5% WATER 245 ML IV NR (14:30)
[2021-08-03] MEDS: FAT EMULSIONS 500 ML IV SCH (20:43)
[2021-08-03] MEDS: TOTAL PARENTERAL NUTRITION 1,600 ML IV SCH (20:47)
[2021-08-03] MEDS: MICAFUNGIN 100 MG in SODIUM CHLORIDE 0.9% 100 ML IV SCH (21:09)
[2021-08-03 21:41] LABS: CREATINE KINASE 80 IU/L (26-192)
[2021-08-04] VITALS: BP 138/47
[2021-08-04] MEDS: MORPHINE SULFATE 2 MG/ML CPJ (NOT FOR IM USE) IV PRN (01:24)
[2021-08-04 04:00] VITALS: BP 106/31
[2021-08-04] MEDS: HYDRALAZINE 20MG/ML VIAL IV SCH ×2 (05:19→14:00)
[2021-08-04] MEDS: BLOOD SUGAR DIAGNOSTIC STRIP TEST SCH ×3 (05:20→12:29)
[2021-08-04] MEDS: METOCLOPRAMIDE HCL 10MG/2ML VIAL IV SCH ×2 (05:20→12:33)
[2021-08-04] MEDS ORDERED: DEXTROSE 50% WATER 50ML SYRINGE IV PRN (05:45)
[2021-08-04] MEDS: INSULIN LISPRO 100 UNITS/ML SUBCUT SCH ×2 (05:51→12:34)
[2021-08-04 06:00] VITALS: BP 117/41
[2021-08-04] MEDS: FERROUS SULFATE 325MG TABLET PO SCH ×2 (09:03→14:55)
[2021-08-04] MEDS: FOLIC ACID 1MG TABLET PO SCH (09:03)
[2021-08-04] MEDS: LINEZOLID 600 MG PREMIX 300 ML IV SCH (09:03)
[2021-08-04] MEDS: BISACODYL 10MG SUPP PR SCH (09:03)
[2021-08-04] MEDS: DOCUSATE SODIUM 100MG CAPSULE PO SCH (09:04)
[2021-08-04] MEDS: AMLODIPINE 5MG TABLET PO SCH (09:05)
[2021-08-04] MEDS: SODIUM HYPOCHLORITE 0.125% 473ML SOLUTION TOP SCH (09:05)
[2021-08-04 13:45] LABS: BG BASE EXCESS -20.7 mmol/L (-2.0-2.0); BG CARBOXYHEMOGLOBIN 0.3 % (0.5-1.5); BG DEOXYHEMOGLOBIN 9.8 % (0.0-5.0); BG FRACTION INSPIRED OXYGEN 44; BG HCO3 ACT 8.7 mmol/L (22.0-26.0); BG METHEMOGLOBIN 0.3 % (0.0-1.5); BG OXYGEN SATURATION 90.1 % (92.0-98.5); BG OXYHEMOGLOBIN 89.6 % (94.0-97.0); BG PCO2 33.1 mmHg (35.0-45.0); BG PH 7.039 (7.350-7.450); BG PO2 72.2 mmHg (75.0-100.0); BG SAMPLE SITE RIGHT RADIAL; BG VENT MODE NASAL CANNULA
[2021-08-04] MEDS ORDERED: SODIUM BICARBONATE 8.4% 1 MEQ/ML 50ML SYR IV SCH (14:30)
[2021-08-04] MEDS ORDERED: SODIUM BICARBONATE 100 MEQ in DEXTROSE 5% WATER 900 ML IV SCH (15:00)
[2021-08-04] MEDS ORDERED: MIDODRINE HCL 5MG TABLET PO SCH (15:30)
[2021-08-04] MEDS ORDERED: SODIUM CHLORIDE 0.9% 500 ML IV ONE (15:30)
[2021-08-04] MEDS ORDERED: LORAZEPAM 2MG/ML CPJ IV PRN (16:00)
== END 2021-08-04 16:00 | DRG 853 ==
LOC: ER 18:34 → EDBEDREQTM 21:02 → EDBEDREQSVC 21:02 → MICUSO 07-22 03:19 → 8WST 07-22 14:06 → CVICU 07-28 22:59 → 5EST 07-30 14:40
PROVIDERS: ADMIT Internal Medicine; ATTEND Internal Medicine
PROC: 0DJ68ZZ Inspection of Stomach, Via Natural or Artificial Opening Endoscopic (ICD-10-PCS; 2021-07-27)
PROC: 02HV33Z Insertion of Infusion Device into Superior Vena Cava, Percutaneous Approach (ICD-10-PCS; 2021-07-27)
PROC: B518ZZA Fluoroscopy of Superior Vena Cava, Guidance (ICD-10-PCS; 2021-07-27)
PROC: 30233N1 Transfusion of Nonautologous Red Blood Cells into Peripheral Vein, Percutaneous Approach (ICD-10-PCS; 2021-07-27)
PROC: 5A09357 Assistance with Respiratory Ventilation, Less than 24 Consecutive Hours, Continuous Positive Airway Pressure (ICD-10-PCS; 2021-07-27)
PROC: 0W9G0ZZ Drainage of Peritoneal Cavity, Open Approach (ICD-10-PCS; principal; 2021-07-28)
PROC: 0WQF0ZZ Repair Abdominal Wall, Open Approach (ICD-10-PCS; 2021-07-28)
PROC: 0WBF0ZZ Excision of Abdominal Wall, Open Approach (ICD-10-PCS; 2021-07-28)
PROC: 0DU907Z Supplement Duodenum with Autologous Tissue Substitute, Open Approach (ICD-10-PCS; 2021-07-28)
PROC: 0DHA0UZ Insertion of Feeding Device into Jejunum, Open Approach (ICD-10-PCS; 2021-07-28)
DX: A41.9 Sepsis, unspecified organism (principal); E43 Unspecified severe protein-calorie malnutrition; I21.A1 Myocardial infarction type 2; K65.3 Choleperitonitis; G92 Toxic encephalopathy; J96.01 Acute respiratory failure with hypoxia; E87.0 Hyperosmolality and hypernatremia; E87.2 Acidosis; M62.82 Rhabdomyolysis; N17.9 Acute kidney failure, unspecified; N18.4 Chronic kidney disease, stage 4 (severe); I74.5 Embolism and thrombosis of iliac artery; K56.7 Ileus, unspecified; D50.9 Iron deficiency anemia, unspecified; E86.0 Dehydration; E87.5 Hyperkalemia; F02.80 Dementia in other diseases classified elsewhere, unspecified severity, without behavioral disturbance, psychotic disturbance, mood disturbance, and anxiety; G30.9 Alzheimer's disease, unspecified; I12.9 Hypertensive chronic kidney disease with stage 1 through stage 4 chronic kidney disease, or unspecified chronic kidney disease; I73.9 Peripheral vascular disease, unspecified; R13.12 Dysphagia, oropharyngeal phase; K43.9 Ventral hernia without obstruction or gangrene; K44.9 Diaphragmatic hernia without obstruction or gangrene; M85.80 Other specified disorders of bone density and structure, unspecified site; E87.8 Other disorders of electrolyte and fluid balance, not elsewhere classified; R73.9 Hyperglycemia, unspecified; E83.41 Hypermagnesemia; L89.156 Pressure-induced deep tissue damage of sacral region; S60.822A Blister (nonthermal) of left wrist, initial encounter; X58.XXXA Exposure to other specified factors, initial encounter; D69.6 Thrombocytopenia, unspecified; Z66 Do not resuscitate; E88.09 Other disorders of plasma-protein metabolism, not elsewhere classified; B19.20 Unspecified viral hepatitis C without hepatic coma; K21.9 Gastro-esophageal reflux disease without esophagitis; K74.60 Unspecified cirrhosis of liver; M19.079 Primary osteoarthritis, unspecified ankle and foot; N20.0 Calculus of kidney; I25.2 Old myocardial infarction; Z79.2 Long term (current) use of antibiotics; Z79.899 Other long term (current) drug therapy; Y93.89 Activity, other specified; Y92.89 Other specified places as the place of occurrence of the external cause; Y99.8 Other external cause status; Z85.028 Personal history of other malignant neoplasm of stomach; Z90.3 Acquired absence of stomach [part of]; Z93.4 Other artificial openings of gastrointestinal tract status
CPT/HCPCS: 36415; 36573; 36600; 71045; 74022; 74176; 76700; 76705; 76770; 80048; 80053; 80076; 80202; 80305; 80307; 80320; 80329; 81003; 82040; 82140; 82248; 82375; 82550; 82607; 82728; 82746; 82805; 82962; 83036; 83540; 83550; 83605; 83735; 84100; 84134; 84443; 84478; 84484; 85025; 85044; 86038; 86160; 86705; 86709; 86803; 86850; 86900; 86920; 87070; 87075; 87077; 87106; 87186; 87340; 87426; 90715; 93005; 93306; 94002; 94003; 99291; A6261; C1725; C1758; C1893; J0360; J0690; J1815; J1940; J2020; J2248; J2250; J2270; J2405; J2543; J2765; J3010; J3370; J3475; J3480; J3490; J7030; J7040; J7050; J7060; J7070; P9016; P9047; G0480